=== PATIENT | female | born 1945 | race Caucasian/White ===

== ENCOUNTER 2021-09-22 10:09 | Inpatient (IN) | payer MEDICARE, MEDICAID ==
[~2021-09-22] VITALS: Ht 163.8 cm; Wt 66.2 kg
[2021-09-22 12:51] LABS: HEMOGLOBIN 12.8 gm/dl (12.3-15.3); RED BLOOD COUNT 4.05 M/UL (4.00-5.10); WHITE BLOOD COUNT 14.9 K/UL (4.5-11.0)
[2021-09-22 13:36] LABS: BUN/CREATININE RATIO 28 (0-10)
[2021-09-22] MEDS ORDERED: ATORVASTATIN CA80 MG PO (15:44)
[2021-09-22] MEDS ORDERED: METOPROLOL TART25 MG PO (15:45)
[2021-09-22] MEDS ORDERED: PREDNISONE10 M1 PO (15:45)
[2021-09-22] MEDS ORDERED: ASPIRIN EC81 MG PO (15:46)
[2021-09-22] MEDS ORDERED: BRILINTA90 MG PO (15:46)
[2021-09-22] MEDS ORDERED: AZITHROMYCIN250 MG PO (15:46)
== END 2021-09-22 22:20 | disposition expired | DRG 871 ==
LOC: ER1 10:09 → CDU 15:05 → CCU 20:35 → CDU 22:20
PROVIDERS: Physician Assistant; ADMIT Internal Medicine
PROC: 5A12012 Performance of Cardiac Output, Single, Manual (ICD-10-PCS; principal; 2021-09-22)
PROC: 8E0ZXY6 Isolation (ICD-10-PCS; 2021-09-22)
PROC: XW033E5 Introduction of Remdesivir Anti-infective into Peripheral Vein, Percutaneous Approach, New Technology Group 5 (ICD-10-PCS; 2021-09-22)
PROC: 3E0333Z Introduction of Anti-inflammatory into Peripheral Vein, Percutaneous Approach (ICD-10-PCS; 2021-09-22)
PROC: 0BH17EZ Insertion of Endotracheal Airway into Trachea, Via Natural or Artificial Opening (ICD-10-PCS; 2021-09-22)
PROC: 5A1935Z Respiratory Ventilation, Less than 24 Consecutive Hours (ICD-10-PCS; 2021-09-22)
PROC: 3E033XZ Introduction of Vasopressor into Peripheral Vein, Percutaneous Approach (ICD-10-PCS; 2021-09-22)
DX: A41.89 Other specified sepsis (principal); I21.A1 Myocardial infarction type 2; U07.1 COVID-19; J12.82 Pneumonia due to coronavirus disease 2019; J96.21 Acute and chronic respiratory failure with hypoxia; N17.0 Acute kidney failure with tubular necrosis; K72.00 Acute and subacute hepatic failure without coma; J44.0 Chronic obstructive pulmonary disease with (acute) lower respiratory infection; E87.2 Acidosis; I48.20 Chronic atrial fibrillation, unspecified; I46.9 Cardiac arrest, cause unspecified; R65.20 Severe sepsis without septic shock; I10 Essential (primary) hypertension; E78.5 Hyperlipidemia, unspecified; I25.10 Atherosclerotic heart disease of native coronary artery without angina pectoris; E86.0 Dehydration; Z99.81 Dependence on supplemental oxygen; Z95.1 Presence of aortocoronary bypass graft; Z98.890 Other specified postprocedural states; Z79.82 Long term (current) use of aspirin; Z79.899 Other long term (current) drug therapy; Z82.49 Family history of ischemic heart disease and other diseases of the circulatory system; I25.2 Old myocardial infarction; Z87.891 Personal history of nicotine dependence
CPT/HCPCS: 31500; 36600; 51702; 71045; 80048; 80053; 81001; 82550; 82553; 82728; 82803; 83605; 83615; 83874; 84443; 84484; 85025; 85379; 85610; 85730; 86140; 87040; 92950; 93005; 96374; 96375; 99285; G0378; J0248; J0696; J1100; J1644; J2185; J3370; J7030; J7070; U0002